=== PATIENT | male | born 1985 | race Caucasian/White ===

== ENCOUNTER 2018-05-25 18:47 | Inpatient (IN) | payer OTHER, MEDICAID ==
[~2018-05-25] VITALS: Ht 167.6 cm; Wt 86.0 kg
[2018-05-25 21:31] LABS: BASOPHIL % 0.5 % (0-2); PLATELET COUNT 247 x10^3mcL (130-400)
[2018-05-25 21:33] LABS: RED CELL DISTRIBUTION WIDTH 15.4 % (11.5-14.5)
[2018-05-25 21:44] LABS: ALBUMIN 3.4 g/dL (3.4-5.0); BILIRUBIN TOTAL 0.5 mg/dL (0.20-1.00); CALCIUM 9.4 mg/dL (8.5-10.1); CARBON DIOXIDE 26.6 mmol/L (21-32)
[2018-05-25 21:45] LABS: TOTAL PROTEIN, SERUM 8.7 g/dL (6.4-8.2)
[2018-05-25 21:47] LABS: CREATININE SERUM 8.3 mg/dL (0.7-1.3); POTASSIUM SERUM 7.5 mmol/L (3.5-5.1)
[2018-05-25 23:45] LABS: PHOSPHOROUS 4.9 mg/dL (2.5-4.9)
[2018-05-25 23:47] LABS: CHOLESTEROL/HDL RATIO 2.3
[2018-05-25 23:53] LABS: FREE T4 1.27 ng/dL (0.76-1.46); FREE THYROXINE INDEX 2.5 ug/dL (1.4-4.5); T4(THYROXINE) 7.6 ug/dL (4.7-13.3)
[2018-05-26] VITALS (9 sets, daily range): BP systolic 142–171; BP diastolic 42–106
[2018-05-26 00:25] LABS: T3 TOTAL 1.45 ng/mL
[2018-05-26] MEDS ORDERED: NOR10 PO (02:18)
[2018-05-26] MEDS ORDERED: HYDROCHLOROTHIA50 MG PO (02:19)
[2018-05-26] MEDS ORDERED: BENADRYL ALLERG25 M1 PO (02:20)
[2018-05-26] MEDS ORDERED: CYCLOBENZAPRINE10 MG PO (02:20)
[2018-05-26] MEDS ORDERED: NEU300 PO (02:21)
[2018-05-26] MEDS ORDERED: LIPITOR40 MG PO (02:21)
[2018-05-26] MEDS ORDERED: PROTONIX40 MG PO (02:21)
[2018-05-26] MEDS ORDERED: ATENOLOL50 MG PO (02:22)
[2018-05-26] MEDS ORDERED: ALPRAZOLAM0.25 MG PO (02:22)
[2018-05-26] MEDS ORDERED: BUPROPION HCL100 M1 PO (02:23)
[2018-05-26] MEDS ORDERED: RENO CAPS1 SGL PO (02:24)
[2018-05-26] MEDS ORDERED: RENVELA800 M1 PO (02:25)
[2018-05-26] MEDS ORDERED: LEVEMIR100 U/M1 SC (02:26)
[2018-05-26 08:07] LABS: CALCIUM 9.9 mg/dL (8.5-10.1); CARBON DIOXIDE 22.4 mmol/L (21-32); PHOSPHOROUS 5.2 mg/dL (2.5-4.9)
[2018-05-26 08:13] LABS: POTASSIUM SERUM 8.6 mmol/L (3.5-5.1)
[2018-05-26 08:14] LABS: CREATININE SERUM 9.1 mg/dL (0.7-1.3)
[2018-05-26 08:33] LABS: BASOPHIL % 0.8 % (0-2); PLATELET COUNT 210 x10^3mcL (130-400)
[2018-05-26 08:37] LABS: RED CELL DISTRIBUTION WIDTH 16.1 % (11.5-14.5)
[2018-05-26 14:55] LABS: CALCIUM 9.7 mg/dL (8.5-10.1); CARBON DIOXIDE 31.6 mmol/L (21-32); POTASSIUM SERUM 3.7 mmol/L (3.5-5.1)
[2018-05-26 14:56] LABS: CREATININE SERUM 4.3 mg/dL (0.7-1.3)
[2018-05-26 20:20] LABS: CALCIUM 9.4 mg/dL (8.5-10.1); CARBON DIOXIDE 29.6 mmol/L (21-32); POTASSIUM SERUM 4.3 mmol/L (3.5-5.1)
[2018-05-26 20:32] LABS: CREATININE SERUM 5.4 mg/dL (0.7-1.3)
[2018-05-26 21:32] LABS: UA SPECIFIC GRAVITY 1.015 (1.005-1.035); microscopic required? YES; urine erythrocyte 2+ (NEGATIVE)
[2018-05-26 21:39] LABS: AMPHETAMINE QUAL UR NONE DETECTED (See below)
[2018-05-27 03:32] VITALS: BP 134/79
[2018-05-27 05:17] LABS: BASOPHIL % 0.8 % (0-2); PLATELET COUNT 202 x10^3mcL (130-400)
[2018-05-27 05:29] LABS: RED CELL DISTRIBUTION WIDTH 15.8 % (11.5-14.5)
[2018-05-27 06:06] LABS: CALCIUM 8.8 mg/dL (8.5-10.1); CARBON DIOXIDE 29.3 mmol/L (21-32); MAGNESIUM 1.8 mg/dL (1.8-2.4); PHOSPHOROUS 6.6 mg/dL (2.5-4.9); POTASSIUM SERUM 4.2 mmol/L (3.5-5.1)
[2018-05-27 06:17] LABS: CREATININE SERUM 6.2 mg/dL (0.7-1.3)
[2018-05-27 07:29] VITALS: BP 145/73
[2018-05-27 07:55] VITALS: Ht 167.6 cm; Wt 86.0 kg
[2018-05-27 11:34] VITALS: BP 138/76
[2018-05-27 14:30] VITALS: BP 147/75
[2018-05-27 20:58] VITALS: BP 143/77
[2018-05-28 06:09] VITALS: BP 143/55
[2018-05-28 06:44] LABS: CALCIUM 8.8 mg/dL (8.5-10.1); CARBON DIOXIDE 24.2 mmol/L (21-32); POTASSIUM SERUM 3.8 mmol/L (3.5-5.1)
[2018-05-28 06:57] LABS: CREATININE SERUM 5.2 mg/dL (0.7-1.3)
[2018-05-28 09:25] VITALS: BP 170/89
[2018-05-28 10:21] VITALS: BP 154/79
[2018-05-28 12:01] VITALS: BP 156/85
[2018-05-28 16:11] VITALS: BP 135/82
[2018-05-28 20:26] VITALS: BP 149/77
[2018-05-29 05:35] VITALS: BP 150/78
[2018-05-29 06:21] LABS: BASOPHIL % 0.9 % (0-2); PLATELET COUNT 236 x10^3mcL (130-400)
[2018-05-29 06:53] LABS: BILIRUBIN TOTAL 0.4 mg/dL (0.20-1.00); CALCIUM 8.4 mg/dL (8.5-10.1); CARBON DIOXIDE 25.9 mmol/L (21-32); MAGNESIUM 1.9 mg/dL (1.8-2.4); PHOSPHOROUS 8.5 mg/dL (2.5-4.9); POTASSIUM SERUM 4.5 mmol/L (3.5-5.1); RED CELL DISTRIBUTION WIDTH 15.5 % (11.5-14.5); TOTAL PROTEIN, SERUM 7.3 g/dL (6.4-8.2)
[2018-05-29 06:55] LABS: CREATININE SERUM 7.3 mg/dL (0.7-1.3)
[2018-05-29 08:39] VITALS: BP 150/78
[2018-05-29 09:20] VITALS: BP 149/79
[2018-05-29 13:15] VITALS: BP 163/91
[2018-05-29 17:12] VITALS: BP 116/53
[2018-05-29 20:37] VITALS: BP 134/80
[2018-05-30 06:00] VITALS: BP 164/86
[2018-05-30 06:58] LABS: BASOPHIL % 0.9 % (0-2); PLATELET COUNT 250 x10^3mcL (130-400)
[2018-05-30 07:00] LABS: RED CELL DISTRIBUTION WIDTH 15.6 % (11.5-14.5)
[2018-05-30 07:23] LABS: CALCIUM 8.8 mg/dL (8.5-10.1); CARBON DIOXIDE 27.8 mmol/L (21-32); MAGNESIUM 1.8 mg/dL (1.8-2.4); PHOSPHOROUS 5.5 mg/dL (2.5-4.9); POTASSIUM SERUM 3.7 mmol/L (3.5-5.1)
[2018-05-30 07:32] LABS: CREATININE SERUM 5.5 mg/dL (0.7-1.3)
[2018-05-30 08:59] VITALS: BP 150/68
[2018-05-30 13:11] VITALS: BP 162/85
[2018-05-30 16:12] VITALS: BP 162/85
[2018-05-30 17:16] VITALS: BP 150/85
== END 2018-05-30 17:54 | disposition home or self-care (01) | DRG 871 ==
LOC: ED 18:47 → DU 21:59 → IC 05-26 13:59 → DU 05-27 13:28
PROVIDERS: Emergency Medicine; Internal Medicine; Internal Medicine Nephrology
DX: A41.02 Sepsis due to Methicillin resistant Staphylococcus aureus (principal); N17.0 Acute kidney failure with tubular necrosis; N18.6 End stage renal disease; L03.113 Cellulitis of right upper limb; I12.0 Hypertensive chronic kidney disease with stage 5 chronic kidney disease or end stage renal disease; E87.1 Hypo-osmolality and hyponatremia; E87.5 Hyperkalemia; E11.22 Type 2 diabetes mellitus with diabetic chronic kidney disease; E11.51 Type 2 diabetes mellitus with diabetic peripheral angiopathy without gangrene; H54.8 Legal blindness, as defined in USA; F17.210 Nicotine dependence, cigarettes, uncomplicated; F12.10 Cannabis abuse, uncomplicated; Z99.2 Dependence on renal dialysis; Z89.512 Acquired absence of left leg below knee; Z99.3 Dependence on wheelchair; Z79.4 Long term (current) use of insulin
CPT/HCPCS: 82962; 83880; 84439; J0610; J1644; J1815; J2270; J2405; J2543; J3370; J3490; J7030; J7050; J7613; J7620; Q0092; Q0163

== ENCOUNTER 2018-11-24 02:53 | Emergency (ER) | payer OTHER, MEDICAID ==
[~2018-11-24] VITALS: Ht 162.6 cm; Wt 87.5 kg
[~2018-11-24 02:53] MED LIST: ALPRAZOLAM0.25 MG PO; ATENOLOL50 MG PO; BENADRYL ALLERG25 M1 PO; BUPROPION HCL100 M1 PO; CYCLOBENZAPRINE10 MG PO; HYDROCHLOROTHIA50 MG PO; LEVEMIR100 U/M1 SC; LIPITOR40 MG PO; NEU300 PO; NOR10 PO; PROTONIX40 MG PO; RENO CAPS1 SGL PO; RENVELA800 M1 PO
[2018-11-24 02:59] VITALS: Ht 162.6 cm; Wt 87.5 kg
[2018-11-24 04:12] LABS: BILIRUBIN TOTAL 0.63 mg/dL (0.20-1.00); CALCIUM 8.7 mg/dL (8.5-10.1); CARBON DIOXIDE 35.1 mmol/L (21-32); POTASSIUM SERUM 4.8 mmol/L (3.5-5.1); TOTAL PROTEIN, SERUM 7.7 g/dL (6.4-8.2)
[2018-11-24 04:13] LABS: ALBUMIN 2.6 g/dL (3.4-5.0); BASOPHIL % 0.3 % (0-2); PLATELET COUNT 252 x10^3mcL (130-400)
[2018-11-24 04:15] LABS: RED CELL DISTRIBUTION WIDTH 18.9 % (11.5-14.5)
[2018-11-24 04:16] LABS: CREATININE SERUM 4.8 mg/dL (0.7-1.3)
[2018-11-24 07:52] VITALS: BP 130/80
== END 2018-11-24 07:52 | disposition home or self-care (01) ==
LOC: ED 02:53
PROVIDERS: Emergency Medicine
DX: K81.0 Acute cholecystitis (principal); I12.0 Hypertensive chronic kidney disease with stage 5 chronic kidney disease or end stage renal disease; E11.22 Type 2 diabetes mellitus with diabetic chronic kidney disease; N18.6 End stage renal disease; D64.9 Anemia, unspecified; E78.00 Pure hypercholesterolemia, unspecified; Z99.2 Dependence on renal dialysis
CPT/HCPCS: J0696; J2270